=== PATIENT | male | born 2000 | race Caucasian/White ===

== ENCOUNTER 2021-06-04 01:44 | Emergency (ER) | payer OTHER, SELFPAY ==
--- NOTE | 2021-06-04 01:54 | DI.CT.S_ITS ---
PROCEDURE: CT HEAD/BRAIN WO CON INDICATIONS: seizure activity, no history of same TECHNIQUE: Noncontrast 4.5 mm thick angled axial sections acquired from the foramen magnum to the vertex, with coronal and sagittal reformats. For radiation dose reduction, the following was used: automated exposure control, adjustment of mA and/or kV according to patient size. COMPARISON: None. FINDINGS: Image quality: Excellent. CSF spaces: Basal cisterns are patent. No extra-axial fluid collections. Ventricles are normal in size and shape. Brain: No midline shift. No intracranial masses or hemorrhage. Santana-white matter interface is normal. Skull and face: Calvarium and visualized facial bones are intact, without suspicious lesions. Sinuses: Visualized sinuses and mastoids are clear. IMPRESSION: CT head without acute intracranial abnormalities. No mass or mass effect visualized. No significant discrepancy with the table games shift manager radiology preliminary report. Dictated by: Abel Schafer M.D. on 06/04/2021 at 7:16 Approved by: Abel Schafer M.D. on 06/04/2021 at 7:17
--- NOTE | 2021-06-04 02:01 | ED_ITS ---
HPI - Seizure General Chief Complaint: Altered Mental Status Stated Complaint: Seizure Time Seen by Provider: 06/04/21 01:45 History of Present Illness HPI Narrative: 20-year-old male nonsmoker with noncontributory medical history presents by EMS for evaluation of seizure-type activity just prior to arrival. He was in his normal state of health throughout the course of the day and denies any nausea, vomiting or diarrhea. He denies any change in medications or his dietary change but states he was active today, outside and fishing and drank very little water but did consume a few beers. He did not eat dinner and then went home and was engaged in sexual activity with his significant other and felt his eyes get a bit twitchy and then significant other states he had about a 1 minute full body shaking seizure-type event. He denies any injury as a consequence, did not bite his tongue and did not lose control of his bladder. It sounds like he woke up rather quickly and EMS was activated, on arrival he was a bit confused but nearly back at his baseline, however his heart rate was found to be 170 with a low blood pressure. He was given a L fluid in route and heart rate had normalized into the 80s and 90s with stable blood pressure. He denies any head or neck pain. He denies any ongoing neurologic symptoms. He denies any recent trauma or head injury. Related Data Allergies Allergy/AdvReac Type Severity Reaction Status Date / Time No Known Drug Allergies Allergy Verified 06/04/21 02:10 Review of Systems Review of Systems Narrative: GENERAL: Denies chills, fatigue, malaise, fever, sweats. HEENT: Denies sinus pain, ear pain, sore throat, difficulty swallowing, dizziness. RESPIRATORY: Denies dyspnea, cough, wheezing, hemoptysis, sputum. CARDIOVASCULAR: Denies chest pain, palpitations, orthopnea, edema, GASTROINTESTINAL: Denies nausea, vomiting, abdominal pain, diarrhea, constipation, melena. : Denies dysuria, frequency, incontinence, hematuria, urinary retention. MUSCULOSKELETAL: denies weakness, joint pain, or bony pain SKIN: Denies rash, skin lesions, or other NEUROLOGIC: See HPI PSYCHIATRIC: No concerning psychosocial issues. 12 point review of systems is negative except for those stated above Patient History Social History Smoking Status: Former smoker Exam Narrative Exam Narrative: GENERAL: [20] year old patient appears stated age. Well- developed patient, in mild distress. HEAD: Atraumatic. Normocephalic. EYES: Pupils equal round and reactive. Extraocular motions intact. No scleral icterus. No injection or drainage. ENT: Nose without bleeding, purulent drainage. Throat without erythema, tonsillar hypertrophy or exudate. Airway patent. NECK: Trachea midline. Non tender CARDIOVASCULAR: Regular rate and rhythm without murmurs, gallops, or rubs. RESPIRATORY: Clear to auscultation. Breath sounds equal bilaterally. No wheezes, rales, or rhonchi. GASTROINTESTINAL: Abdomen soft, non-tender, nondistended. EXTREMITIES: No edema or joint tenderness. BACK: Nontender without deformity or crepitance. No flank tenderness. NEURO: AOx3. SKIN: No rash or erythema of visible areas Initial Vital Signs Initial Vital Signs: Vital Signs Temperature 98.2 F 06/04/21 02:04 Pulse Rate 106 H 06/04/21 02:04 Respiratory Rate 18 06/04/21 02:04 Blood Pressure 121/72 06/04/21 02:04 Pulse Oximetry 100 06/04/21 02:04 Course Orders Ordered: ED Orders 06/04/21 01:54 CT head/brain wo con Stat EKG-12 Lead Stat 06/04/21 01:58 Complete Blood Count AUTO DIFF Stat Comprehensive Metabolic Panel Stat Ethanol (ETOH) Stat Magnesium Stat Discontinued Medications Sodium Chloride (Normal Saline 0.9%) 1,000 mls @ 1,000 mls/hr IV BOLUS ONE Stop: 06/04/21 02:53 Last Admin: 06/04/21 02:37 Dose: 1,000 mls/hr Documented by: DEE DEE Reevaluation(s) Reevaluation #1: Patient feeling much better after above-stated therapies. He is awake, alert oriented, ambulating through the department without difficulty. Vital Signs Vital signs: Vital Signs - 8 hr 06/04/21 02:04 Temperature 98.2 F Pulse Rate 106 H Respiratory Rate 18 Blood Pressure 121/72 Pulse Oximetry 100 MDM - Seizure Lab Data Result diagrams: 06/04/21 01:58 06/04/21 01:58 Labs: Lab Results 06/04/21 06/04/21 Range/Units 01:58 01:58 WBC 7.1 (4.5-11.0) X10^3/uL RBC 4.44 L (4.5-5.9) X10^6/uL Hgb 14.2 (13.5-17.5) g/dL Hct 40.7 L (41-53) % MCV 91.7 (80-100) fL MCH 32.0 (26-34) PG MCHC 34.9 (30-36) % RDW 12.6 (11.6-14.8) % Plt Count 269 (150-400) X10^3/uL Neut % (Auto) 78.0 H (50-75) % Lymph % (Auto) 12.7 L (25-40) % [place] % (Auto) 7.5 (3-14) % Eos % (Auto) 1.6 L (2-4) % Baso % (Auto) 0.2 (0-2) % Neut # (Auto) 5500 (2826-4084) /uL Lymph # (Auto) 900 L (6345-9501) /uL [place] # (Auto) 500 (0-900) /uL Eos # (Auto) 100 (0-450) /uL Baso # (Auto) 0 (0-100) /uL Sodium 137 (137-145) mmol/L Potassium 4.2 (3.4-5.1) mmol/L Chloride 105 (98-107) mmol/L Carbon Dioxide 24 (22-32) mmol/L BUN 13 (9-20) mg/dL Creatinine 0.73 (0.66-1.25) mg/dL Estimated GFR > 60.0 (>60) mL/min BUN/Creatinine Ratio 17.8 (6-22) Glucose 95 (70-100) mg/dL Calcium 9.2 (8.4-10.2) mg/dL Magnesium 2.1 (1.6-2.3) mg/dL Total Bilirubin 0.7 (0.2-1.3) mg/dL AST 25 (17-59) IU/L ALT 21 (<50) IU/L Alkaline Phosphatase 27 L (38-126) U/L Total Protein 7.1 (6.3-8.2) g/dL Albumin 4.3 (3.5-5.0) g/dL Globulin 2.8 (1.7-4.1) g/dL Albumin/Globulin Ratio 1.5 (1.0-2.8) Ethyl Alcohol < 10 ( - 10) mg/dL Imaging Data CT scan - head: Radiologist's Impression: No acute process MDM Narrative Medical decision making narrative: Multiple etiologies for patient's symptoms considered including: [Seizure versus syncope versus cardiac arrhythmia versus dehydration versus other] Patient's symptoms improved over duration of stay with above-stated therapies. Findings and discharge diagnosis discussed with patient/family followed by verbalization of understanding Return precautions discussed with patient/family whom verbalize understanding. Discharge Plan Departure Patient Disposition: Home Clinical Impression: Seizure Instructions: Seizure Disorder -- Adult, Seizure Safety Precautions-Adult Activity Restrictions/Additional Instructions: *You have been diagnosed with [seizure versus atypical syncope] *What to do: *Please continue to take your regular medications as directed. [ ] New medication prescriptions sent to your pharmacy: [ ] [ ] New medication written as a paper prescription [x ] No new medications given *Please follow up with your primary care provider in 2-3 days, call for an appointment. Let them know you were seen in the Emergency Department and that we ask that you be seen in follow up. We will electronically transmit a record of today's note if your PCP is in our system *NO DRIVING UNTIL CLEARED BY YOUR PRIMARY DOCTOR *If you do not have a primary care provider please contact the [facility] Resource line at [phone]. They will ask some questions about your medical history and help get you set up with a doctor in the community. *Return to Emergency Department if you should have any new, worsening or concerning symptoms, such as [fever greater than 101 F, shaking chills, worsening pain, persistent vomiting or other bothersome symptoms] Referrals: [facility] [Outside]
[2021-06-04 02:04] VITALS: BP 121/72; PULSE 106; RESP 18; TEMP 36.8; O2SAT 100; BMI 24.4
[2021-06-04 02:10] LABS: Add Manual Diff / Slide Review NO; Basophils Absolute Auto 0 /uL (0-100); Basophils Percent Auto 0.2 % (0-2); Eosinophils Absolute Auto 100 /uL (0-450); Eosinophils Percent Auto 1.6 % (2-4); Hematocrit 40.7 % (41-53); Hemoglobin 14.2 g/dL (13.5-17.5); Lymphocytes Absolute Auto 900 /uL (1100-4500); Lymphocytes Percent Auto 12.7 % (25-40); Mean Corpuscular HGB Conc 34.9 % (30-36); Mean Corpuscular Volume 91.7 fL (80-100); Monocytes Absolute Auto 500 /uL (0-900); Monocytes Percent Auto 7.5 % (3-14); Neutrophils Absolute Auto 5500 /uL (1500-7000); Platelet Count 269 X10^3/uL (150-400); Red Blood Cell Count 4.44 X10^6/uL (4.5-5.9); Red Cell Distribution Width 12.6 % (11.6-14.8); White Blood Cell Count 7.1 X10^3/uL (4.5-11.0)
[2021-06-04 02:24] LABS: Alanine Aminotransferase 21 IU/L (<50); Albumin 4.3 g/dL (3.5-5.0); Albumin Globulin Ratio 1.5 (1.0-2.8); Alkaline Phosphatase 27 U/L (38-126); Aspartate Aminotransferase 25 IU/L (17-59); BUN Creatinine Ratio 17.8 (6-22); Bilirubin Total 0.7 mg/dL (0.2-1.3); Blood Urea Nitrogen 13 mg/dL (9-20); Calcium 9.2 mg/dL (8.4-10.2); Carbon Dioxide 24 mmol/L (22-32); Chloride 105 mmol/L (98-107); Estimated Glomerular Filt Rate > 60.0 mL/min (>60); Ethanol (ETOH) < 10 mg/dL; Globulin 2.8 g/dL (1.7-4.1); Glucose 95 mg/dL (70-100); HEMOLYSIS < 15 (0-50); Magnesium 2.1 mg/dL (1.6-2.3); Potassium 4.2 mmol/L (3.4-5.1); Sodium 137 mmol/L (137-145); Total Protein 7.1 g/dL (6.3-8.2)
[2021-06-04] MEDS: SODIUM CHLORIDE 0.9% 1,000 ML 1000 ML IV (02:37)
--- NOTE | 2021-06-04 03:33 | PC.NURSE ---
Patient had brief loss of consciousness (approximately 1 minute) after sexual intercourse. He stated he couldn't remember what happened or where he was immediately upon awakening and looked like he was having seizure-like activity per girlfriend.
[2021-06-04 03:35] VITALS: BP 121/68; BP 121/69; BP 126/73; PULSE 90; PULSE 92; PULSE 94
[2021-06-04 03:39] LABS: Bacteria Urine None Seen; WBC Urine None Seen (0-5/HPF)
[2021-06-04 03:47] LABS: Appearance Urine UA CLEAR; Bilirubin Urine UA NEGATIVE (NEGATIVE); Color Urine UA YELLOW; Glucose Urine UA NEGATIVE (Negative); Ketones Urine UA TRACE (NEGATIVE); Leukocyte Esterase Urine UA NEGATIVE (NEGATIVE); Nitrite Urine UA NEGATIVE (Negative); Occult Blood Urine UA TRACE-LYSED (Negative); Protein Urine UA NEGATIVE (Negative); Specific Gravity Urine UA 1.015 (1.000-1.035); Urobilinogen Urine UA 0.2 E.U./dL (0.2)
[2021-06-04 03:52] LABS: RBC Urine 0-1/HPF (0-5/HPF); Squamous Epithelial Cell Urine 0-1 /HPF (0-5/HPF)
[2021-06-04 03:53] LABS: Hyaline Casts Urine 0-1/LPF; Uric Acid Crystals Urine Moderate
[2021-06-04 03:54] LABS: Culture Indicated Urine Cult Not Indicated
[2021-06-04 03:57] VITALS: BP 126/72; PULSE 94; RESP 18; TEMP 36.8; O2SAT 98
== END 2021-06-04 04:59 | disposition home or self-care (01) ==
PROVIDERS: Emergency Provider Emergency Medicine
DX: R56.9 Unspecified convulsions (principal)
CPT/HCPCS: 36415; 70450; 80053; 80320; 81001; 81003; 83735; 85025; 93005; 93010; 96360; 99284